=== PATIENT | female | born 1980 | race Caucasian/White ===

== ENCOUNTER 2023-03-19 13:02 | Emergency (ER) | payer SELFPAY ==
--- OUTSIDE RECORDS SUMMARY | 2023-03-19 13:21 | XMS REPORT | Continuity of Care Document ---
:1980 Author Organization [facility] t Address [address] [place] [address] [place] [id number] Care Team Providers Name Role Phone ALONDRA ARNOLD Primary Care Physician Unavailable DINA DUKES - Attending Clinician Unavailable ALLY POP Attending Clinician Unavailable SANDER RAMIREZ Attending Clinician Unavailable JOEY CADENA Attending Clinician Unavailable Margarita Harrison MD Attending Clinician Unavailable Yajaira Christie Attending Clinician Unavailable Margaret Arce Attending Clinician [phone] DINA DUKES - Admitting Clinician Unavailable ALLY POP Admitting Clinician Unavailable SANDER RAMIREZ Admitting Clinician Unavailable Margarita Harrison MD Unavailable Unavailable Payers Payer Name Policy Type Policy Number Effective Date Expiration Date S ource Self Pay P [id number] 2022 00:00:00 105 C [id number] Problems Condition Condition Condition Status Onset Resolution Last Treating Co mments Source Name Details Category Date Date Treatment Clinician Date Cocaine Condition Active 2022-07-16 Christy Sa n abuse, 07-16 11:52:42 Margarita Lenin continuous 00:00: Behavi o [facility] Opioid Condition Active 2022-07-16 Christy, Becerra abuse, 07-16 11:52:42 Margarita Lenin continuous 00:00: Behavi o 00 [facility] Cannabis Condition Active 2022-07-16 Christy S an use, 07-16 11:52:42 [place] Lenin unspecifie 00:00: Behavi o d, 00 [facility] Allergies, Adverse Reactions, Alerts Allergy Allergy Status Severity Reaction(s) Onset Inactive Treating Comm ents Source Name Type Date Date Clinician Sulfa Drug Active U Not Religious Antibiot Allergy Specified 02-26 [facility] Penicill Drug Active U Not Religious ins Allergy Specified 02-26 [facility] 19:10: [facility] HALDOL Drug Active U Not Religious Allergy Specified 02-26 [facility] 19:10: l [facility] ([place] Phenothi Drug Active U Not Religious azines Allergy Specified 02-26 Hospit [facility] 19:10: l [facility] ([place]) ZOLOFT Drug Active U Not Religious Allergy Specified 02-26 Hospit [facility] 19:10: l [facility] ([place] RISPERDA Drug Active U Not Religious L Allergy Specified 02-26 [facility] 19:10: l [facility] ([place] HALDOL Drug Active U Not Religious Allergy Specified 02-26 [facility] 19:10: l [facility] ([place] ZOLOFT Drug Active U Not Religious Allergy Specified 02-26 Hospit [facility] 19:10: l [facility] ([place] RISPERDA Drug Active U Not Religious L Allergy Specified 02-26 [facility] 19:10: l [facility] ([place] HALDOL Drug Active U Not Religious Allergy Specified 02-26 [facility] 19:10: l [facility] ([place] ZOLOFT Drug Active U Not Religious Allergy Specified 02-26 Hospit [facility] 19:10: l [facility] ([place] RISPERDA Drug Active U Not Religious L Allergy Specified 02-26 [facility] 19:10: l [facility] ([place]) HALDOL Drug Active U Not Religious Allergy Specified 02-26 Hospit [facility] 19:10: l [facility] ([place] ZOLOFT Drug Active U Not Religious Allergy Specified 02-26 [facility] 19:10: l [facility] ([place]) RISPERDA Drug Active U Not Religious L Allergy Specified 02-26 Hospit [facility] 19:10: l [facility] ([place]) HALDOL Drug Active U Not Religious Allergy Specified 02-26 Hospit [facility] 19:10: l [facility] ([place] ZOLOFT Drug Active U Not Religious Allergy Specified 02-26 Hospit [facility] 19:10: l [facility] ([place]) RISPERDA Drug Active U Not Religious L Allergy Specified 02-26 [facility] 19:10: l [facility] ([place]) HALDOL Drug Active U Not Religious Allergy Specified 02-26 Hospit [facility] 19:10: l 49 ([place]) ZOLOFT Drug Active U Not Religious Allergy Specified 02-26 Hospit [facility] 19:10: l 49 ([place]) RISPERDA Drug Active U Not Religious L Allergy Specified 02-26 Hospit [facility] 19:10: l 49 ([place]) HALDOL Drug Active U Not Religious Allergy Specified 02-26 Hospit [facility] 19:10: l 49 ([place]) ZOLOFT Drug Active U Not Religious Allergy Specified 02-26 Hospit [facility] 19:10: l 49 ([place]) RISPERDA Drug Active U Not Religious L Allergy Specified 02-26 Hospit [facility] 19:10: l 49 ([place]) HALDOL Drug Active U Not Religious Allergy Specified 02-26 Hospit [facility] 19:10: l 49 ([place]) ZOLOFT Drug Active U Not Religious Allergy Specified 02-26 Hospit [facility] 19:10: l 49 ([place]) RISPERDA Drug Active U Not Religious L Allergy Specified 02-26 Hospit [facility] 19:10: l [facility] ([place]) No Known NA Active Religious Allergie 02-26 [facility]ospita [facility] 19:04: l 14 ([place]) No Known NA Active Religious Allergie 8 Hospita [facility] 00:49: l 45 ([facility]) No Known NA Active Religious Allergie 01-05 Hospita s 08:01: l 41 ([facility] nt) No Known NA Active Religious Allergie 01-05 Hospita s 08:01: l 23 ([facility] nt) No Known NA Active Religious Allergie 01-05 Hospita s 07:54: l 48 ([facility] nt) No Known NA Active Religious Allergie 01-05 Hospita s 07:50: l 47 ([facility] nt) Social History Social Habit Start Date Stop Date Quantity Comments Source drug use 2022-07-16 2022-07-16 currently Legkristin [facility] 09:09:28 09:09:28 Health PHQ2 Questionairre 2022-07-16 2022-07-16 [facility] Score 09:09:28 09:09:28 Health Medications This patient has no known medications. Procedures Procedure Date / Time Performed Performing Clinician [facility] e [facility] Recovery 2022-07-16 11:49:11 Margarita [facility] Social Work Health Diagnostic evaluation 2022-07-16 11:48:48 Margarita Harrison with medical - [id number] Health Encounters Start End Encounter Admission Attending Care Care Encounter Source Date/Time Date/Time Type Type Clinicians Facility Department ID 2022-08-09 Outpatient [facility] [id number] [facility] 07:37:03 [id number] [facility] 2022-07-26 Outpatient [facility] [id number] [facility] 14:03:09 [id number] [facility] 2022-07-25 Outpatient [facility] [id number] [facility] 15:29:03 [id number] [facility] 2022-07-15 Outpatient [facility] [id number] [facility] 13:41:27 [id number] [facility] 2022-07-13 Outpatient [facility] [id number] [facility] 08:15:38 [id number] [facility] 2022-07-11 Outpatient [facility] [id number] [facility] 15:13:11 [id number] [facility] 2023-03-13 2023-03-13 Outpatient [facility] SFA [id number] [facility] 09:10:32 09:10:32 [id number] F Kendall 2023-03-04 2023-03-08 Outpatient [facility] [id number] 17:58:00 16:20:00 Encounter [facility] [id number] [facility] [id number] 2023-03-04 2023-03-08 Outpatient 3 DINA DUKES [facility] [id number] Religious 12:58:00 11:20:00 [facility] ([place] 2023-03-08 2023-03-08 Outpatient [facility]FA SFA [id number] [facility] 09:02:48 09:02:48 [id number] F Kendall 2023-02-27 2023-02-27 Emergency [facility] [id number] 00:03:00 01:52:00 Department RUSSELL [id number] Patient HOSPITAL [id number] Visit 2023-02-26 2023-02-26 Emergency 1 ARIEL POP ERS [id number] Religious 19:03:00 20:52:00 [facility] 2023-01-05 2023-01-05 Emergency [facility] [id number] 12:50:00 12:54:00 Department RUSSELL [id number] Patient HOSPITAL [id number] Visit 2023-01-05 2023-01-05 Emergency 1 ARIEL RAMIREZ ERS [id number] Religious 07:50:00 07:54:00 [facility] ([place] 2022-09-29 2022-09-29 Emergency ER SURINDER, CARIE DARNELL [id number] CHRISTU 10:59:00 12:00:00 JOEY -[id number] Mabel Goss Wilmer 2022-07-16 2022-07-16 In-person Margarita Harrison [facility] [id number] [facility] 00:00:00 00:00:00 encounter [facility] [id number] [facility] 2022-07-16 2022-07-16 In-person Margarita Harrison [facility] Hernan Galindo o Encounter/ [facility] 00:00:00 00:00:00 encounter Yajaira [facility] [id number] [facility] [id number] [facility] Results Test Description Test Time Test Comments Results Result Comments Source WHOLE BLOOD GLUCOSE 2023-02-26 19:23:00 Test Item Value Reference Range Interpretation Comme [facility] WHOLE BLOOD GLUCOSE (test 110 MG/DL 70-99 Fasting glucose normal <100 MG/DL- code = POC GLU) [facility] recommendation* *
[2023-03-19] MEDS ORDERED: HYDRALAZINE HCL 20 MG/ML VIAL ONE (14:29)
--- NOTE | 2023-03-19 15:03 | RAD REPORT ---
EXAM DESCRIPTION: Frankie Single View03/19/2023 2:08 pm CLINICAL HISTORY: CHEST PAIN COMPARISON: No comparisons TECHNIQUE: Portable AP view of the chest. FINDINGS: The lungs are clear. No pneumothorax or effusion. The cardiomediastinal contours are unre markable. IMPRESSION: No acute cardiopulmonary process.
[2023-03-19 15:04] LABS: Absolute Lymphocytes (CBC) 2.1 K/uL (0.7-4.9); Hematocrit 41.8 % (36.0-45.0); Lymphocytes % 24.6 % (15.3-44.8); MCV 88.6 fL (80-100); MPV 7.2 fL (7.6-11.3); Platelets 307 thou/uL (152-406); RBC Red Blood Cell Count 4.72 M/uL (3.86-4.86)
[2023-03-19 15:16] LABS: Potassium 3.7 mEq/L (3.5-5.1); Troponin High Sensitivity 4.8 pg/mL (<58.9)
--- NOTE | 2023-03-19 15:23 | ER ---
Nurse's Notes [facility] Name: Sheng Mantilla Age: 42 yrs Sex: Female : 1980 Arrival Date: 03/19/2023 Time: 13:02 Bed 10 Private MD: Diagnosis: Chest pain, unspecified;Essential (primary) hypertension Presentation: 03/19 13:24 Chief complaint: Patient states: High blood pressure reading, headache. Coronavirus nj1 screen: Vaccine status: Patient reports receiving the 2nd dose of the covid vaccine. Ebola Screen: Patient denies travel to an Ebola-affected area in the 21 days before illness onset. Initial Sepsis Screen: Does the patient meet any 2 criteria? No. Patient's initial sepsis screen is negative. Does the patient have a suspected source of infection? No. Patient's initial sepsis screen is negative. Risk Assessment: Do you want to hurt yourself or someone else? Patient reports no desire to harm self or others. Onset of symptoms was March 2023. 13:24 Method Of Arrival: Ambulatory [facility] 13:24 Acuity: DEL 3 nj1 Historical: - Allergies: 13:26 No Known Allergies; nj1 - Home Meds: 13:26 losartan oral [Active]; Trazodone Oral [Active]; Clonidine Oral [Active]; nj1 - PMHx: 13:26 Hypertensive disorder; Insomnia; nj1 - PSHx: 13:26 Left arm spins/rods; nj1 - Immunization history:: Client reports receiving the 2nd dose of the Covid vaccine. - Social history:: Smoking status: Reported history of juuling and/or vaping. Screenin:[address] [facility] ED Fall Risk Assessment (Adult) History of falling in the last 3 months, mb9 including since admission No falls in past 3 months (0 pts) Confusion or Disorientation No (0 pts) Intoxicated or Sedated No (0 pts) Impaired Gait No (0 pts) Mobility Assist Device Used No (0 pt) Altered Elimination No (0 pt) Score/Fall Risk Level 0 - 2 = Low Risk Oriented to surroundings, Maintained a safe environment, Educated pt \T\ family on fall prevention, incl call for assistance when getting out of bed. Abuse screen: Denies threats or abuse. Nutritional screening: No deficits noted. Tuberculosis screening: No symptoms or risk factors identified. Assessment: 14:42 General: Appears in no apparent distress. Behavior is calm, appropriate for age. Pain: mb9 Denies pain. Neuro: De Oliveira Agitation-Sedation Scale (RASS): 0 - Alert and Calm Level of Consciousness is awake, alert, obeys commands, Oriented to person, place, time, situation, Appropriate for age. Cardiovascular: Patient's skin is warm and dry. Cardiovascular: Heart tones S1 S2 present. Cardiovascular: Denies chest pain, shortness of breath. Respiratory: Airway is patent Respiratory effort is even, unlabored, Respiratory pattern is regular, symmetrical. GI: No signs and/or symptoms were reported involving the gastrointestinal system. : No signs and/or symptoms were reported regarding the genitourinary system. EENT: No signs and/or symptoms were reported regarding the EENT system. Derm: Skin is pink, warm \T\ dry. Musculoskeletal: Range of motion: intact in all extremities. 15:31 Reassessment: No changes from previously documented assessment. Patient and/or family mb9 updated on plan of care and expected duration. Pain level reassessed. Patient is alert, oriented x 3, equal unlabored respirations, skin warm/dry/pink. Vital Signs: 13:24 BP 161 / 105; Pulse 78; Resp 18; Temp 98.8(TE); Pulse Ox 100% ; Weight 62.14 kg; Height nj1 5 ft. 4 in. ; Pain 5/10; 14:43 BP 121 / 82; Pulse 74; Resp 16; Pulse Ox 100% on R/A; mb9 15:31 BP 120 / 80; Pulse 71; Resp 16; Pulse Ox 100% on R/A; mb9 13:24 Body Mass Index 23.52 (62.14 kg, 162.56 cm) nj1 13:24 Pain Scale: Adult nj NIH Stroke Scale Scores: 13:30 NIHSS Score: 0 [facility] ED Course: 13:06 Patient arrived in ED. mr 13:13 [facility] Hall [facility] 7 13:13 Solitario Zamorano MD is Attending Physician. 7 13:26 Triage completed. nj1 13:27 Arm band placed on right wrist. nj1 14:05 XRAY Chest (1 view) In Process Unspecified. EDMS 14:10 Soledad Townsend RN is Primary Nurse. mb9 14:25 No provider procedures requiring assistance completed. Missed attempt(s): 22 gauge in mb9 left antecubital area. Bleeding controlled, band aid applied, catheter tip intact. 14:40 Missed attempt(s): 22 gauge in right forearm. Bleeding controlled, band aid applied, mb9 catheter tip intact. 14:43 Placed in gown. Bed in low position. Call light in reach. Side rails up X 1. Client mb9 placed on continuous cardiac and pulse oximetry monitoring. NIBP monitoring applied. quality assurance monitor chassis on. 14:45 Initial lab(s) drawn, by me, sent to lab. Inserted saline lock: 22 gauge in right jl7 forearm, using aseptic technique. Blood collected. 15:31 IV discontinued, intact, bleeding controlled, No redness/swelling at site. Pressure mb9 dressing applied. Administered Medications: 14:42 Not Given (Hemodynamic Parameters): [id number] mg IVP once mb9 Medication: 14:43 VIS not applicable for this client. mb9 Outcome: 15:22 Discharge ordered by MD. ch 15:31 Discharged to home ambulatory, mb9 15:31 Condition: stable 15:31 Discharge instructions given to patient, Instructed on discharge instructions, follow up and referral plans. Demonstrated understanding of instructions, follow-up care, 15:31 Patient left the ED. mb9 NIH Stroke Scale - NIH Stroke Score Date: 03/19/2023 Time: 13:30 Total Score = 0 10. Dysarthria (speech clarity - read or repeat words) - 0(Normal) 11. Extinction and Inattention (visual/tactile/auditory/spatial/personal) - 0(No abnormality) 1a. Level of Consciousness (LOC) - 0(Alert) 1b. Level of Consciousness (LOC) (Month \T\ Age) - 0(Both) 1c. LOC Commands (Open \T\ Closes Eyes/Statement Services Representative) - 0(Both) 2. Best Gaze (Lateral Gaze Paresis) - 0(Normal) 3. Visual Field Loss - 0(No visual loss) 4. Facial Palsy - 0(Normal) 5a. Left Arm: Motor (10-second hold) - 0(No drift) 5b. Right Arm: Motor (10-second hold) - 0(No drift) 6a. Left Leg: Motor (5-second hold - always test supine) - 0(No drift) 6b. Right Leg: Motor (5-second hold - always test supine) - 0(No drift) 7. Limb Ataxia (finger/nose \T\ heel/lux - test with eyes open) - 0(Absent) 8. Sensory Loss (pinprick arms/legs/face) - 0(Normal) 9. Best Language: Aphasia (description/naming/reading) - 0(No aphasia) Initials: [facility] Signatures: Dispatcher [employer] EDDE Soledad Schneider, Reg Reg mr CarrollElizabeth, RN RN jl7 Flory Hall, MAINTENANCE TRAINER MAINTENANCE TRAINER 7 Soledad Townsend, RN RN mb9 Marylu Ramos RN RN nj1
--- NOTE | 2023-03-19 15:23 | EDPHYS ---
Physician Documentation [facility] Name: Sheng Mantilla Age: 42 yrs Sex: Female : 1980 Arrival Date: 03/19/2023 Time: 13:02 Bed 10 Private MD: ED Physician oSlitario Zamorano HPI: 03/19 13:30 This 42 yrs old Female presents to ER via Ambulatory with complaints of High Blood jh7 Pressure, Headache, Finger numbness. 13:30 The patient has elevated blood pressure and discovered this [facility]. Onset: The jh7 symptoms/episode began/occurred today. Associated signs and symptoms: Pertinent positives: chest pain, dizziness, headache, Pertinent negatives: nausea, visual changes, vomiting, weakness. Patient reports 3 elevated blood pressure readings at [facility] with the last one being 176/100.. Historical: - Allergies: 13:26 No Known Allergies; nj1 - Home Meds: 13:26 losartan oral [Active]; Trazodone Oral [Active]; Clonidine Oral [Active]; nj1 - PMHx: 13:26 Hypertensive disorder; Insomnia; nj1 - PSHx: 13:26 Left arm spins/rods; nj1 - Immunization history:: Client reports receiving the 2nd dose of the Covid vaccine. - Social history:: Smoking status: Reported history of juuling and/or vaping. ROS: 13:30 Constitutional: Negative for fever, chills, and weight loss, Eyes: Negative for injury, jh7 pain, redness, and discharge, Neck: Negative for injury, pain, and swelling, Respiratory: Negative for shortness of breath, cough, wheezing, and pleuritic chest pain, Abdomen/GI: Negative for abdominal pain, nausea, vomiting, diarrhea, and constipation, MS/Extremity: Negative for injury and deformity, Skin: Negative for injury, rash, and discoloration, 13:30 Cardiovascular: Positive for chest pain, Negative for palpitations, 13:30 Neuro: Positive for dizziness, headache, Negative for gait disturbance, numbness, seizure activity, speech changes, syncope, tingling, visual changes, weakness, 13:30 All other systems are negative, Exam: 13:30 Constitutional: This is a well developed, well nourished patient who is awake, alert, jh7 and in no acute distress. Neck: Trachea midline, no thyromegaly or masses palpated, and no cervical lymphadenopathy. Supple, full range of motion without nuchal rigidity, or vertebral point tenderness. No Meningismus. Cardiovascular: Regular rate and rhythm with a normal S1 and S2. No gallops, murmurs, or rubs. Normal PMI, no JVD. No pulse deficits. Respiratory: Lungs have equal breath sounds bilaterally, clear to auscultation and percussion. No rales, rhonchi or wheezes noted. No increased work of breathing, no retractions or nasal flaring. Abdomen/GI: Soft, non-tender, with normal bowel sounds. No distension or tympany. No guarding or rebound. No evidence of tenderness throughout. Skin: Warm, dry with normal turgor. Normal color with no rashes, no lesions, and no evidence of cellulitis. MS/ Extremity: Pulses equal, no cyanosis. Neurovascular intact. Full, normal range of motion. 13:30 Neuro: Orientation: is normal, to person, place, time \T\ situation. Mentation: is normal, Memory: is normal, Cranial nerves: grossly normal, Cerebellar function: is grossly normal, Motor: is normal, Sensation: is normal, Gait: is steady, Vital Signs: 13:24 BP 161 / 105; Pulse 78; Resp 18; Temp 98.8(TE); Pulse Ox 100% ; Weight 62.14 kg; Height nj1 5 ft. 4 in. ; Pain 5/10; 14:43 BP 121 / 82; Pulse 74; Resp 16; Pulse Ox 100% on R/A; mb9 15:31 BP 120 / 80; Pulse 71; Resp 16; Pulse Ox 100% on R/A; mb9 13:24 Body Mass Index 23.52 (62.14 kg, 162.56 cm) [facility] 13:24 Pain Scale: Adult [facility] NIH Stroke Scale Scores: 13:30 NIHSS Score: 0 [facility] MDM: 13:13 Patient medically screened. [facility] 15:22 Differential diagnosis: hypertensive crisis, Malignant HTN, Acute OK, unstable angina. [facility] Data interpreted: Pulse oximetry: Interpretation: normal. Data reviewed: vital signs, nurses notes, lab test result(s), EKG, radiologic studies, plain films. Independent interpretation of the following test(s) in the Emergency Department EKG: See my EKG interpretation above. Care significantly affected by the following chronic conditions: Hypertension. Counseling: I had a detailed discussion with the patient and/or guardian regarding the historical points, exam findings, and any diagnostic results supporting the discharge/admit diagnosis, to return to the emergency department if symptoms worsen or persist or if there are any questions or concerns that arise at home. ED course: Hypertension and chest pain resolved on its own without any medication. Advised the patient to return to the ER if she experiences returning symptoms. Informed her of all labs, imaging, and EKG results.. 03/19 13:23 Order name: Basic Metabolic Panel; Complete Time: 15:18 [facility] 03/19 13:23 Order name: CBC with Diff; Complete Time: 15:07 [facility] 03/19 13:23 Order name: Troponin HS; Complete Time: 15:18 [facility] 03/19 13:23 Order name: XRAY Chest (1 view); Complete Time: 15:07 [facility] 03/19 13:23 Order name: EKG; Complete Time: 13:23 [facility] 03/19 13:23 Order name: Cardiac monitoring; Complete Time: 14:10 [facility] 03/19 13:23 Order name: EKG - Nurse/Tech; Complete Time: 14:29 [facility] 03/19 13:23 Order name: IV Saline Lock; Complete Time: 15:05 [facility] 03/19 13:23 Order name: Labs collected and sent; Complete Time: 15:05 [facility] 03/19 13:23 Order name: O2 Per Protocol; Complete Time: 14: [facility] 03/19 13:23 Order name: O2 Sat Monitoring; Complete Time: 14: EC:22 Rate is 66 beats/min. Rhythm is regular. QRS [place] is Normal. [place] interval is normal at [facility] 150 msec. QRS interval is normal at 94 msec. QT interval is normal at 388 msec. No Q waves. T waves are Normal. No ST changes noted. Clinical impression: Normal ECG. Administered Medications: 14:42 Not Given (Hemodynamic Parameters): [id number] mg IVP once mb9 Disposition Summary: 03/19/23 15:22 Discharge Ordered Notes: Location: Home [facility] Problem: new [facility] Symptoms: are resolved [facility] Condition: Stable [facility] Diagnosis - Chest pain, unspecified [facility] - Essential (primary) hypertension [facility] Followup: [facility] - With: Private Physician - When: 2 - 3 days - Reason: Recheck today's complaints Discharge Instructions: - Discharge Summary Sheet [facility] - Nonspecific Chest Pain, Adult [facility] - Chest Wall Pain [facility] - Hypertension, Adult [facility] - Managing Your Hypertension [facility] Forms: - Medication Reconciliation Form [facility] - Thank You Letter [facility] - Patient Portal Instructions [facility] - Leadership Thank You Letter [facility] NIH Stroke Scale - NIH Stroke Score Date: 03/19/2023 Time: 13:30 Total Score = 0 10. Dysarthria (speech clarity - read or repeat words) - 0(Normal) 11. Extinction and Inattention (visual/tactile/auditory/spatial/personal) - 0(No abnormality) 1a. Level of Consciousness (LOC) - 0(Alert) 1b. Level of Consciousness (LOC) (Month \T\ Age) - 0(Both) 1c. LOC Commands (Open \T\ Closes Eyes/Public Employment Mediator) - 0(Both) 2. Best Gaze (Lateral Gaze Paresis) - 0(Normal) 3. Visual Field Loss - 0(No visual loss) 4. Facial Palsy - 0(Normal) 5a. Left Arm: Motor (10-second hold) - 0(No drift) 5b. Right Arm: Motor (10-second hold) - 0(No drift) 6a. Left Leg: Motor (5-second hold - always test supine) - 0(No drift) 6b. Right Leg: Motor (5-second hold - always test supine) - 0(No drift) 7. Limb Ataxia (finger/nose \T\ heel/lux - test with eyes open) - 0(Absent) 8. Sensory Loss (pinprick arms/legs/face) - 0(Normal) 9. Best Language: Aphasia (description/naming/reading) - 0(No aphasia) Initials: [facility] Signatures: Dispatcher [employer] Flory Goldsmith, SOFTWARE TOOLS ENGINEER SOFTWARE TOOLS ENGINEER 7 Marylu Ramos RN RN nj1 Soledad Townsend RN mb9 Corrections: (The following items were deleted from the chart) 15:23 15:22 Primary pulmonary hypertension [place] [id number]
[2023-03-19 15:41] VITALS: TEMP 98.8; O2SAT 100
[2023-03-19 15:43] VITALS: BP 120/80
--- NOTE | 2023-03-20 12:38 | EKG ---
Test Date: 2023-03-19 Test Time: 14:22:52 Mobile Sales Expert: MB MEASUREMENT RESULTS: Intervals: Rate: 66 ME: 150 QRSD: 94 QT: 388 QTc: 406 [place]: P: 74 ME: 150 QRS: 78 T: 96 INTERPRETIVE STATEMENTS: Normal sinus rhythm Normal ECG No previous ECG available for comparison Electronically Signed On 03-20-23 12:36:29 CDT by Chriss Padilla
== END 2023-03-19 15:31 | disposition home or self-care (01) ==
LOC: ER 13:02
DX: I10 Essential (primary) hypertension (principal)
CPT/HCPCS: 36415; 71045; 80048; 84484; 85025; 93005; J0360